=== PATIENT | female | born 1965 | race Hispanic/Latino ===

== ENCOUNTER 2023-10-17 13:28 | Observation (INO) | payer OTHER ==
[~2023-10-17 13:28] MED LIST: Iopamidol-370 76% 500 ML MDV (1 ML CHARGE) ONE
[2023-10-17 14:28] LABS: #Monocytes 0.1 thou/uL (0.11-0.59); #Neutrophils 5.6 thou/uL (1.40-6.50); %Basophils 0.3 % (0.0-1.0); %Eosinophils 0.2 % (0.0-10.0); %Lymphocytes 11.5 % (21.0-51.0); %Monocytes 1.1 % (0.0-10.0); %Neutrophils 86.6 % (42.0-75.0); Hematocrit 39.1 % (36.0-47.0); Hemoglobin 13.7 g/dL (12.0-16.0); Mean Corpuscular Hemoglobin 31.1 pg (27.0-31.0); Mean Corpuscular Volume 88.7 fl (78.0-98.0); Platelet Count 317 10x3/uL (130-400); RBC Distribution Width 12.5 % (11.5-14.5); Red Blood Cell (RBC) Count 4.41 mill/uL (4.20-5.40); White Blood Cell (WBC) Count 6.4 10x3/uL (4.8-10.8)
[2023-10-17] MEDS ORDERED: Acetaminophen 500 MG TAB ONE (14:31)
[2023-10-17 14:44] LABS: Anion Gap 15 mmol/L (10-20); BUN (Urea Nitrogen) 14 mg/dL (9.8-20.1); Calc. Creatinine Clearance 0 mL/min (70-130); Calcium 8.8 mg/dL (7.8-10.44); Carbon Dioxide 19 mmol/L (22-29); Chloride 104 mmol/L (98-107); Estimated GFR 83; Glucose 109 mg/dL (70-105); Lipase 33 U/L (8-78); Potassium 3.6 mmol/L (3.5-5.1); Sodium 134 mmol/L (136-145)
[2023-10-17] MEDS ORDERED: cefTRIAXone (ROCEPHIN) 2 GM VIAL ONE (14:45)
[2023-10-17 14:49] LABS: INR-International Normal Ratio 1.1; PTT 27.5 sec (22.9-36.1); Prothrombin Time 14.5 sec (12.0-14.7); Troponin I 0.051 ng/mL (< 0.028)
[2023-10-17] MEDS ORDERED: Dexamethasone 10 MG/ML VIAL ONE (14:53)
[2023-10-17] MEDS ORDERED: Ampicillin 2 GM VIAL ONE (14:53)
[2023-10-17] MEDS ORDERED: Vancomycin (BATCH) 1.5 GM in Premix 1 BAG IVPB SCH (15:00)
[2023-10-17 15:02] LABS: Bacteria/HPF None Seen HPF (None Seen); Bilirubin Negative (Negative); Blood, Urine Negative (Negative); CAUTI Indications for Culture Alt mental st,lethar; Clarity Clear (Clear); Glucose, Urine (Dipstick) Normal (Negative); Ketone, Urine Negative (Negative); Leukocyte Negative Leu/uL (Negative); Nitrite Negative (Negative); Protein, Urine (Dipstick) Negative (Neg-Trace); RBC/HPF 0-3 HPF (0-3); Specific Gravity, Urine 1.013 (1.002-1.036); Squamous Epithelial 0-3 HPF (0-3); Urobilinogen Normal mg/dL (Less than 2); WBC/HPF 0-3 HPF (0-3)
[2023-10-17 15:04] LABS: Urine Culture Reflex No No
[2023-10-17 15:31] LABS: SARS-CoV-2 NAA Rapid Test Not Detected (NotDetected)
[2023-10-17 16:37] LABS: CSF Source CSF; Clarity Clear (Clear); Tube # 4
[2023-10-17 16:45] LABS: CSF Source CSF; Clarity Hazy (Clear); Tube # 1
[2023-10-17 16:50] LABS: CSF, Glucose 51 mg/dl (40-70); CSF, Protein 30 mg/dL (15-40)
[2023-10-17 17:22] LABS: Color Of CSF Supernatant COLORLESS (Colorless); Tube # 3; Unspun CSF Color COLORLESS (Colorless)
[2023-10-17 17:28] LABS: Lactic Acid 2.3 mmol/L (0.5-2.2)
[2023-10-17 19:22] LABS: Magnesium 1.6 mg/dL (1.6-2.6)
[2023-10-17] MEDS ORDERED: Acetaminophen 325 MG TAB PO PRN (19:22)
[2023-10-17] MEDS ORDERED: Ondansetron ODT 4 MG TAB PO PRN (19:22)
[2023-10-17] MEDS ORDERED: Acetaminophen 650 MG Suppository PR PRN (19:22)
[2023-10-17] MEDS ORDERED: Ondansetron PF 4 MG/2 ML Vial IVP PRN (19:22)
[2023-10-17] MEDS ORDERED: Nitroglycerin 0.4 MG TAB (25 Tab Bottle) SL PRN (19:22)
[2023-10-17] MEDS ORDERED: Aspirin 325 MG TAB PO SCH (19:45)
[2023-10-17] MEDS ORDERED: Electrolyte Replacement Protocol 1 EACH FS SCH (19:45)
[2023-10-17] MEDS ORDERED: Magnesium 2 GM/50 ML(in water) 2 GM in Premix 1 BAG IVPB SCH (20:00)
[2023-10-17] MEDS ORDERED: Sodium Chloride 0.9% 1,000 ML IV SCH (20:15)
[2023-10-17 21:00] VITALS: BMI 24.3
[2023-10-17 22:48] LABS: Critical Call Chem-Lactate NUR.SC14 @2246
[2023-10-17 22:50] LABS: Troponin I 0.066 ng/mL (< 0.028)
[2023-10-17] MEDS ORDERED: Sodium Chloride 0.9% 500 ML IV SCH (23:00)
[2023-10-18 04:51] LABS: #Monocytes 0.6 thou/uL (0.11-0.59); %Basophils 0.3 % (0.0-1.0); %Lymphocytes 13.8 % (21.0-51.0); %Monocytes 7.2 % (0.0-10.0); %Neutrophils 78.4 % (42.0-75.0); Hemoglobin 13.3 g/dL (12.0-16.0); Manual Diff?? YES; Mean Corpuscular Hemoglobin 30.6 pg (27.0-31.0); Mean Corpuscular Volume 87.4 fl (78.0-98.0); Mean Platelet Volume 10.3 fL (7.4-10.4); Platelet Count 343 10x3/uL (130-400); RBC Distribution Width 12.6 % (11.5-14.5); Red Blood Cell (RBC) Count 4.35 mill/uL (4.20-5.40); White Blood Cell (WBC) Count 7.6 10x3/uL (4.8-10.8)
[2023-10-18 04:56] LABS: Hemoglobin A1c 6.1 % (4.0-6.0)
[2023-10-18 04:58] LABS: Lactic Acid 1.1 mmol/L (0.5-2.2)
[2023-10-18 05:06] LABS: BUN (Urea Nitrogen) 11 mg/dL (9.8-20.1); Calc. Creatinine Clearance 81 mL/min (70-130); Calcium 8.6 mg/dL (7.8-10.44); Carbon Dioxide 20 mmol/L (22-29); Cardiac Risk 6.4 (Less than 4.5); Chloride 110 mmol/L (98-107); Cholesterol 178 mg/dl (< 200 Desired); Estimated GFR 102; Glucose 149 mg/dL (70-105); HDL Cholesterol 28 mg/dL (>60 Neg Risk); LDL Cholesterol, Calculated 110 mg/dL; Potassium 3.4 mmol/L (3.5-5.1); Sodium 137 mmol/L (136-145); Triglycerides 199 mg/dL (Less than 150)
[2023-10-18 05:07] LABS: Anion Gap 10 mmol/L (10-20)
[2023-10-18 05:17] LABS: Band 34 % (5-11); CellaVision Operator ID LAB.CLH1; Lymphocytes 17 % (21-51); Monocytes 2 % (0-10); Neutrophil 44 % (42-75); Platelet Adequacy Comment Platelets Normal; Reactive Lymphocytes 3 % (0-10); Total Cell Count 100
[2023-10-18] MEDS: Vancomycin HCl 500 MG in Sodium Chloride 0.9% 100 ML IVPB SCH ×2 (05:18→15:58)
[2023-10-18] MEDS: Cefepime 2 GM in Sodium Chloride 0.9% 100 ML IVPB SCH ×2 (08:36→22:06)
[2023-10-18] MEDS ORDERED: Vancomycin 1 GM in Premix 1 BAG IVPB SCH (09:00)
[2023-10-18 09:03] LABS: Phosphorus 3.2 mg/dL (2.3-4.7)
[2023-10-18] MEDS ORDERED: Potassium Phosphate 30 MMOL in Sodium Chloride 0.9% 250 ML 250 ML IVPB SCH (09:45)
[2023-10-18] MEDS ORDERED: Regadenoson 0.4 MG/5 ML SYRINGE ONE (11:42)
[2023-10-18] MEDS ORDERED: Potassium Chloride 20 MEQ TAB PO SCH (17:30)
[2023-10-18] MEDS ORDERED: hydrALAZINE 20 MG/ML VIAL SLOW IVP SCH (19:15)
[2023-10-18] MEDS ORDERED: Lisinopril 10 MG TAB PO SCH (20:15)
[2023-10-18] MEDS ORDERED: Hydrochlorothiazide 25 MG TAB PO SCH (20:15)
[2023-10-18] MEDS ORDERED: Sodium Chloride 0.9% 250 ML IV SCH (21:00)
[2023-10-18 23:05] LABS: Anion Gap 11 mmol/L (10-20); BUN (Urea Nitrogen) 14 mg/dL (9.8-20.1); Calc. Creatinine Clearance 77 mL/min (70-130); Calcium 8.4 mg/dL (7.8-10.44); Carbon Dioxide 20 mmol/L (22-29); Chloride 114 mmol/L (98-107); Estimated GFR 97; Glucose 136 mg/dL (70-105); Magnesium 2.1 mg/dL (1.6-2.6); Potassium 3.9 mmol/L (3.5-5.1); Sodium 141 mmol/L (136-145)
[2023-10-18 23:09] LABS: Troponin I 0.065 ng/mL (< 0.028)
[2023-10-19] MEDS ORDERED: Lisinopril 10 MG TAB PO SCH (09:00)
[2023-10-19] MEDS ORDERED: Hydrochlorothiazide 25 MG TAB PO SCH (09:00)
[2023-10-19] MEDS ORDERED: hydrOXYzine 25 MG TAB PO SCH (11:30)
[2023-10-19 15:15] VITALS: BP 122/60; TEMP 98.9
[2023-10-20] MEDS ORDERED: FLU VACC QS2023-24(6MOS UP)/PF 60 MCG/0.5 ML SYRINGE IM ONE (09:00)
== END 2023-10-19 16:45 | disposition home or self-care (01) ==
LOC: ERS 13:28 → 2SW 18:30
PROVIDERS: ADMIT Hospitalist; ATTEND Internal Medicine
PROC: 009Y3ZZ Drainage of Lumbar Spinal Cord, Percutaneous Approach (ICD-10-PCS; principal; 2023-10-19)
DX: R07.9 Chest pain, unspecified (principal); A41.9 Sepsis, unspecified organism; I10 Essential (primary) hypertension; Z98.890 Other specified postprocedural states; Z79.899 Other long term (current) drug therapy
CPT/HCPCS: 36415; 62270; 70450; 71045; 71275; 78452; 80048; 80061; 81001; 82945; 83036; 83605; 83690; 83735; 83880; 84100; 84145; 84157; 84443; 84484; 85025; 85379; 85610; 85730; 87040; 87070; 87086; 87205; 89051; 93005; 93010; 93017; 96365; 96367; 96375; 96376; A9502; G0378; J0290; J0360; J0692; J0696; J1100; J2785; J3370; J3475; J3490; J7030; J7050; Q9967

== ENCOUNTER 2024-02-24 13:39 | Outpatient (CLI) | payer OTHER | END 2024-02-24 13:40 | disposition home or self-care (01) | LOC: BICMAMMO 13:39 | PROVIDERS: ATTEND Student in an Organized Health Care Education/Training Program | DX: Z13.820 Encounter for screening for osteoporosis (principal); M81.0 Age-related osteoporosis without current pathological fracture; M85.851 Other specified disorders of bone density and structure, right thigh; M85.852 Other specified disorders of bone density and structure, left thigh; Z78.0 Asymptomatic menopausal state | CPT/HCPCS: 77080 ==